=== PATIENT | male | born 1970 | race Caucasian/White ===

== ENCOUNTER 2019-09-04 12:04 | Emergency (ER) | payer OTHER ==
[~2019-09-04] VITALS: Ht 172.7 cm; Wt 74.8 kg
[2019-09-04 12:11] VITALS: BP 124/68
[2019-09-04] MEDS ORDERED: METH4TAB2 PO (12:25)
[2019-09-04] MEDS ORDERED: HYDR-3165 PO (12:25)
[2019-09-04] MEDS ORDERED: KETOROLAC 30 MG/ML VIAL. IM ONE (12:30)
--- NOTE | 2019-09-04 12:45 | RAD ---
Examination: HIP LEFT 2 VIEW History: Atraumatic pain Comparison/Correlation: None Findings: 2 view left hip x-rays and was performed including frontal and frog-leg lateral views. Left hip joint space is unremarkable. No acute fracture or bone destruction. Soft tissues are unremarkable. No acute process. Impression: Normal left hip x-ray exam. Consider further evaluation imaging evaluation if occult process is a concern. Electronically signed by: Larry Silverio MD (09/04/2019 12:42 PM) [facility]
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
== END 2019-09-04 12:56 | disposition home or self-care (01) ==
LOC: ER 12:04
DX: M54.42 Lumbago with sciatica, left side (principal)
CPT/HCPCS: 73502; 96372; 99284; J1885